=== PATIENT | female | born 1990 | race Two or more races ===

== ENCOUNTER 2018-06-24 00:16 | Emergency (ER) | payer MEDICAID ==
[~2018-06-24] VITALS: Ht 162.6 cm; Wt 97.5 kg
[2018-06-24 00:35] VITALS: BP 147/93
[2018-06-24] MEDS ORDERED: LACTULOSE 20Gm/30ML SOLN PO ONE (03:15)
== END 2018-06-24 04:26 | disposition home or self-care (01) ==
LOC: ER 00:26
DX: M53.3 Sacrococcygeal disorders, not elsewhere classified (principal); K59.00 Constipation, unspecified
CPT/HCPCS: 72220